=== PATIENT | male | born 1955 | race Caucasian/White ===

== ENCOUNTER 2017-04-07 10:41 | Emergency (ER) | payer MEDICAID, OTHER ==
[2017-04-07 10:51] VITALS: BMI 27.7
[2017-04-07 10:55] VITALS: RESP 18; TEMP 98.3; O2SAT 98
--- NOTE | 2017-04-07 11:32 | C.PDOC ---
History Of Present Illness 62 y/o male presents to the ED with complains of right knee pain x1 week. Pt denies any injury or trauma. Denies weakness, numbness or any other complaints. Time Seen by Provider: 04/07/17 11:16 Chief Complaint (Nursing): Lower Extremity Problem/Injury History Per: Patient History/Exam Limitations: no limitations Onset/Duration Of Symptoms: Days Current Symptoms Are (Timing): Still Present Severity: Moderate Recent travel outside of the [place]: No Past Medical History Reviewed: Historical Data, Nursing Documentation, Vital Signs Vital Signs: Last Vital Signs Temp 98.3 F 04/07/17 10:53 Pulse 79 04/07/17 13:39 Resp 18 04/07/17 13:39 BP 162/89 H 04/07/17 13:39 Pulse Ox 98 04/07/17 15:04 Family History: States: Unknown Family Hx - Social History Hx Tobacco Use: Yes Hx Alcohol Use: No Hx Substance Use: No - Immunization History Hx Tetanus Toxoid Vaccination: Yes Hx Influenza Vaccination: No Hx Pneumococcal Vaccination: Yes Review Of Systems Except As Marked, All Systems Reviewed And Found Negative. Musculoskeletal: Positive for: Other (right knee pain) Neurological: Negative for: Weakness, Numbness Physical Exam - Physical Exam Appears: Non-toxic, No Acute Distress Skin: Warm, Dry, No Rash Head: Atraumatic, Normacephalic Extremity: Normal ROM, Tenderness (right medial knee), Capillary Refill (<2 seconds), No Deformity, No Swelling, Other (no warmth) Pulses: Left Dorsalis Pedis: Normal, Right Dorsalis Pedis: Normal Neurological/Psych: Oriented x3, Normal Motor, Normal Sensation ED Course And Treatment O2 Sat by Pulse Oximetry: 98 (room air) Pulse Ox Interpretation: Normal - Other Rad XR knee X-Ray: Viewed By Me, Read By Radiologist Interpretation: Accession No. : [id number]. Patient Name / ID : [id number] LAM / [id number]. Exam Date : 04/07/2017 11:24:58 ( Approved ). Study Comment : Sex / Age : M / 62Y. Creator : Jose Ward. Dictator : Jose Ward. Motor Vehicle Representative : Insulation Professional : Jose Ward. Approver2 : Report Date : 04/07/2017 14:28:41. My Comment : . PROCEDURE: Right Knee Radiographs. HISTORY: atraumatic pain. COMPARISON: None. FINDINGS: BONES: No evidence of acute fracture or destructive bony lesion. JOINTS: Mild osteoarthritic changes. Right knee joint effusion. JOINT EFFUSION: Suspicious for suprapatellar joint effusion. OTHER FINDINGS: Small foci of vascular calcification. IMPRESSION: No evidence of acute fracture or dislocation. Mild osteoarthritic changes. Suspicious for suprapatellar joint effusion. Progress Note: Plan: XR right knee. Patient was treated with knee brace and crutches. Disposition - Disposition Referrals: Wendy Renae MD [Staff Provider] - Disposition: HOME/ ROUTINE Disposition Time: 12:52 Condition: STABLE Additional Instructions: Follow up with Orthopedist within 1-2 days. Return to ED if feel worse. Prescriptions: Ibuprofen [Motrin Tab] 600 mg PO Q8 #30 tab Instructions: Knee Pain (ED) Print Language: CZECH - Clinical Impression Clinical Impression: Knee pain - PA / LAW FIRM CONSULTANT / Resident Statement MD/DO has reviewed & agrees with the documentation as recorded. - Scribe Statement The provider has reviewed the documentation as recorded by the Mo Verma All medical record entries made by the Mo were at my direction and personally dictated by me. I have reviewed the chart and agree that the record accurately reflects my personal performance of the history, physical exam, medical decision making, and the department course for this patient. I have also personally directed, reviewed, and agree with the discharge instructions and disposition.
[2017-04-07 13:40] VITALS: BP 162/89; PULSE 79
--- NOTE | 2017-04-07 14:29 | RAD ---
PROCEDURE: Right Knee Radiographs. HISTORY: atraumatic pain COMPARISON: None. FINDINGS: BONES: No evidence of acute fracture or destructive bony lesion. JOINTS: Mild osteoarthritic changes. Right knee joint effusion. JOINT EFFUSION: Suspicious for suprapatellar joint effusion. OTHER FINDINGS: Small foci of vascular calcification. IMPRESSION: No evidence of acute fracture or dislocation. Mild osteoarthritic changes. Suspicious for suprapatellar joint effusion.
== END 2017-04-07 13:41 | disposition home or self-care (01) ==
LOC: C.ER 10:41
DX: M25.561 Pain in right knee (principal)
CPT/HCPCS: 73562; 97116; 97161; 99285; G8978; G8979; G8980